=== PATIENT | male | born 1995 | race Caucasian/White ===

== ENCOUNTER → 2017-07-02 | Outpatient (CLI) | payer OTHER ==
--- NOTE | 2017-07-02 14:23 | MR ---
EXAMINATION TYPE: MR shoulder RT wo con DATE OF EXAM: 07/02/2017 COMPARISON: Plain film 10/24/2016 HISTORY: Right shoulder pain TECHNIQUE: Multiplanar, multisequence imaging of the right shoulder is performed without contrast. FINDINGS: Rotator Cuff: Intact, some increased signal within the rotator cuff tendon may represent some tendino sis, no prosper tear evident Acromioclavicular Joint: Intact Glenohumeral Joint: Intact Labrum: Posterior labrum shows some increased signal on T2-weighted sequences, difficult to exclude a tear. Biceps Tendon: Shows a normal position in the bicipital groove Bone marrow signal: Bubbly focus of intermediate signal on T1, increased signal on T2-weighted sequen teofilo corresponds to the proximal metaphyseal humeral lesion seen on plain film is compatible with fibr ous cortical defect in the posterior humerus. There is some increased signal on T2-weighted sequences , intermediate signal on T1 along the anterior aspect of the humeral head at its cephalad aspect, bon e contusion could have this appearance alternatively red marrow. Other: No sizable effusion. IMPRESSION: Correlate for possible history of contusion. Benign, nonaggressive appearing lesion compatible with f ibrous cortical defect. Difficult to exclude a posterior labral tear.
== END | disposition home or self-care (01) ==
LOC: RADMRIMAIN 12:01
PROVIDERS: ATTEND Orthopaedic Surgery
DX: M75.91 Shoulder lesion, unspecified, right shoulder (principal)